=== PATIENT | male | born 1960 | race African-American/Black ===

== ENCOUNTER 2016-08-10 16:05 | Emergency (ER) | payer OTHER ==
[~2016-08-10] VITALS: Ht 172.7 cm; Wt 92.5 kg
[~2016-08-10 16:05] MED LIST: CHOL2000 PO; GABA300C16 PO; NORCO PO; SUCR1TAB56 PO; SULI150T39 PO; TRAM-40 PO
[2016-08-10 16:08] VITALS: Ht 172.7 cm; Wt 92.5 kg
[2016-08-10] MEDS ORDERED: KETOROLAC 30 MG INJ IM STA (17:10)
[2016-08-10] MEDS ORDERED: DIAZEPAM 5 MG TAB PO ONE (17:30)
[2016-08-10] MEDS ORDERED: IBUP400T22 PO (19:12)
--- NOTE | 2016-08-10 19:25 | RADRPT ---
PROCEDURE: XR Hip. CLINICAL INDICATION: Right hip arthroplasty placed 1 year ago. TECHNIQUE: AP and frog lateral views of the right hip were performed. COMPARISON: 11/09/2015. FINDINGS: Total right hip arthroplasty without evident hardware complication, although the distal tip of the a rthroplasty is not seen on these films. There is normal mineralization and alignment. No fracture or osseous lesion is identified. There are normal joints without evidence of arthritis or effusion. The soft tissues are unremarkable. IMPRESSION: No evident hardware complication or acute fracture. RPTAT: [facility] Physician Jose Date Time Electronically viewed and signed by Physician Jose on 08/10/2016 19:25 RS/
--- NOTE | 2016-08-10 19:49 | ERD ---
ER Documentation Chief Complaint Date/Time DATE: 08/10/16 TIME: 19:40 Chief Complaint BACK AND RIGHT HIP PAIN HPI 55 year old male presents to the emergency department history of chronic back and hip pain, status post right and left hip replacement in 2014 and 2015 presenting to the emergency room complaining of acute on chronic lower back pain and hip pain. Patient states that he is following up with his orthopedist however he has not been able to sleep because of the pain and presents today for to get an x-ray. Patient states that he took [employer] about 2 hours ago with no relief. Patient denies any numbness or tingling, saddle anesthesia or bladder or bowel incontinence ROS All systems reviewed and are negative except as per history of present illness. Medications Home Meds Active Scripts Ibuprofen* (Ibuprofen*) 400 Mg Tablet, 400 MG PO Q6H Y for PAIN, #30 TAB Prov:ABDULLAHI SHELTON PA-C 08/10/16 Reported Medications Sucralfate* (Carafate*) 1 Gm Tab, 1 GM PO AC MEALS AND BEDTIME, TAB 11/09/15 [[employer]] No Conflict Check, 5-325 MG PO 10/26/14 Cholecalciferol* (Vitamin D3*) 2,000 Unit Cap, 2000 UNIT PO DAILY, CAP 05/20/14 Sulindac* (Sulindac*) 150 Mg Tablet, 150 MG PO BID, TAB 05/20/14 Tramadol Hcl* (Ultram*) 50 Mg Tablet, 50 MG PO QHS Y for PAIN, TAB 05/20/14 Gabapentin* (Gabapentin*) 300 Mg Capsule, 300 MG PO, CAP 03/02/14 Allergies Allergies: Coded Allergies: No Known Allergy (Unverified , 08/10/16) PMhx/Soc History of Surgery: Yes (R THR 10/2014 , LT THR 2015 , LT ROTATOR CUFF , CHOLECYSTECTOMY ) Anesthesia Reaction: Yes (EYES BURNING AFTER SURGERY, PT STATES THEY WERE NOT PROTECTED AND TAPED ) Hx Neurological Disorder: No Hx Respiratory Disorders: No Hx Cardiac Disorders: Yes (IRRIGULAR HRT RATE, HAD ECHO, SEEN BY CARDIO) Hx Psychiatric Problems: No Hx Miscellaneous Medical Probl: Yes (sarcoidosis) Hx Alcohol Use: Yes (OCCASSIONALLY) Hx Substance Use: No Hx Tobacco Use: No Smoking Status: Never smoker Physical Exam Vitals Vital Signs Date Time Temp Pulse Resp B/P Pulse Ox O2 Delivery O2 Flow Rate FiO2 08/10/16 16:08 98.5 88 18 128/95 98 Physical Exam GENERAL: WD/WN, in no apparent distress, non-toxic appearing HENT: NC/AT EYES: Conjunctiva normal NECK: Supple PULM: Normal labored breathing CV: Good capillary refill GI: Non-distended, no guarding BACK: no deformities noted, normal spinal curvature, TTP on lumbar region BL, non-tender on spine midline, normal anal wink, + right straight leg raise EXT: TTP right hip No clubbing, cyanosis, or edema NEURO: Moves on all fours, sensation intact, normal gait SKIN: intact PSYCH: Normal mood Results 24 hrs Current Medications Medications (Trade) Dose Ordered Sig/Devaughn Route PRN Reason Start Time Stop Time Status Last Admin Dose Admin Ketorolac Tromethamine (Toradol) 30 mg ONCE STAT IM 08/10/16 17:10 08/10/16 17:13 DC 08/10/16 17:18 Diazepam (Valium) 5 mg ONCE ONCE PO 08/10/16 17:30 08/10/16 17:31 DC 08/10/16 17:18 Procedures/MDM 55 year old male presents to the emergency department history of chronic back and hip pain, status post right hip replacement in 2014 and left hip replacement 2016 presenting to the emergency room complaining of acute on chronic lower back pain and hip pain. Patient states that he is following up with his orthopedist however he has not been able to sleep because of the pain and presents today for to get an x-ray, low suspicion for spinal abscess, vertebral fracture, cauda equina syndrome, spinal stenosis due to physical examination. Patient is going to follow-up with orthopedist. An x-ray of the right hip was done and radiologist stated that the x-ray of the right hip showed normal hardware and there was no acute fracture dislocation. In the ED patient was given Toradol and Valium with some improvement. Patient is neurovascularly intact. Prescriptions ibuprofen was given to patient , discussed to return to the ED if not improving as expected or follow-up with a primary care physician. Patient understood and agreed with this plan. Departure Diagnosis: Primary Impression: Hip pain Additional Impression: Back pain Condition: Stable Patient Instructions: How Your Hip Works, Hip Precautions, Back Pain (Acute Or Chronic) Additional Instructions: FOLLOW UP WITH YOUR PRIMARY CARE PHYSICIAN TOMORROW.Return to this facility if you are not improving as expected. Take all medicines as directed. Return to this facility if you are not improving as expected. ABDULLAHI SHELTON PA-C Aug 10, 2016 19:49
[2016-08-10 19:51] VITALS: BP 119/79; PULSE 90; RESP 18; TEMP 98.5
== END 2016-08-10 19:51 | disposition home or self-care (01) ==
LOC: FTE 16:05
DX: M25.551 Pain in right hip (principal); Z96.642 Presence of left artificial hip joint
CPT/HCPCS: 73510; J1885; Z7610; 96372

== ENCOUNTER → 2016-12-12 | Day surgery (SDC) | payer OTHER ==
[~2016-12-12] VITALS: Ht 182.9 cm; Wt 85.0 kg
[2016-12-12] VITALS (17 sets, daily range): BP systolic 119–148; BP diastolic 78–100; PULSE 77–83; RESP 18–22; Ht 182.9 cm; Wt 85.0 kg
[~2016-12-12] MED LIST changes: +BUPIVACAINE 0.5%/EPI (SDV) 10 ML INJ ONE; +CEFAZOLIN 1 GM INJ ONE; +CEFAZOLIN 2 GM/50 ML (PMX) 50 ML IVPB ONE; +CEFAZOLIN 2 GM/50 ML (PMX) 50 ML IVPB SCH; +DEXAMETHASONE 2 MG TAB ONE; +DEXAMETHASONE 2 MG TAB PO ONE; +DEXAMETHASONE 2 MG TAB PO SCH; +DIPHENHYDRAMINE 50 MG INJ IV PRN; +EPINEPHrine 1 MG/ML 30 ML INJ ONE; +FENTAnyl 50 MCG/ML VIAL IV PRN; +FENTAnyl 50 MCG/ML VIAL ONE; +GABAPENTIN 300 MG CAP ONE; +GABAPENTIN 300 MG CAP PO ONE; +GABAPENTIN 300 MG CAP PO SCH; +GLYCOPYRROLATE 1 MG INJ ONE; +IBUP400T22 PO; +LABETALOL HCL 20MG INJ IV PRN; +LIDOCAINE 2% (SDV) 5 ML INJ ONE; +MEPERIDINE 25 MG INJ IV PRN; +MIDAZOLAM 1 MG/ML 2 ML INJ ONE; +NALOXONE (0.4 MG/ML) INJ IV PRN; +NEOSTIGMINE 3 MG/3 ML SYRINGE ONE; +ONDANSETRON 4 MG INJ IV PRN; +ONDANSETRON 4 MG INJ ONE; +PHENYLephrine (100 MCG/ML) 5ML SYG ONE; +PROPOFOL 20 ML ONE; +ROCURONIUM 50 MG INJ ONE; +ROPIVACAINE 0.5 % 30 ML VIAL ONE; +TAMS0.4C2 PO; +TEMA15CA PO; +TRANEXAMIC ACID 1,000 MG in SOD CHLORIDE 0.9% 100 ML IVPB ONE; +TRANEXAMIC ACID 1,000 MG in SOD CHLORIDE 0.9% 100 ML IVPB SCH; +TYL500 PO; +hydrALAzine 20 MG INJ IV PRN; +morphine (1 MG/ML) 10ML SYRINGE IV PRN; +traMADol 50 MG TAB ONE; +traMADol 50 MG TAB PO ONE; +traMADol 50 MG TAB PO SCH
--- NOTE | 2016-12-12 14:16 | HPN ---
Date/Time of Note Date/Time of Note DATE: 12/12/16 TIME: 14:15 Interval H&P Admission Note Pt. seen H&P reviewed: No system changes PEGGY HILL MD Dec 12, 2016 14:16
--- NOTE | 2016-12-12 16:06 | PDOCDIS ---
Discharge Instructions DIAGNOSIS Discharge Diagnosis Acromioclavicular joint arthritis with partial rotator cuff tear left shoulder CONDITION Patient Condition: Good HOME CARE INSTRUCTIONS: Diet Instructions: Regular ACTIVITY: Activity Restrictions: Slowly Increase Activity Keep Limb Elevated Bathing Restrictions: Shower FOLLOW UP/APPOINTMENTS Follow-up Plan 2 weeks SCHOOL/WORK RELEASE May return to School/Work with: With Restrictions School/Work Release Comment: Tabletop usage 5 pounds maximum for 1 month PEGGY HILL MD Dec 12, 2016 16:06
--- NOTE | 2016-12-12 16:11 | OPR ---
Date/Time of Note Date/Time of Note DATE: 12/12/16 TIME: 16:07 Operative Report Procedure Date: Dec 12, 2016 Preoperative Diagnosis Left shoulder impingement with rotator cuff tear Postoperative Diagnosis 1. Left shoulder acromioclavicular joint arthritis ' 2. Left shoulder partial rotator cuff tear Operation Performed 1. Left shoulder distal clavicle resection, arthroscopic 2. Left shoulder extensive arthroscopic debridement Surgeon: PEGGY HILL MD Molding Manager: ALISSA LORENZO MD Anesthesia Type: general Estimated Blood Loss: minimal Transfusion Required: no Specimen: none Grafts/Implants: none Complications: no Pt Condition Post Procedure: stable Disposition: PACU Procedure Description CHIEF INFORMATION SECURITY OFFICER SURGEON: Alissa Lorenzo MD was asked to be present at my request as a result of the complexity associated with this procedure including positioning of the extremity, manipulation of the arthroscope and positioning. In my opinion the assistance offered by a surgical scrub nurses insufficient and Dr. Lorenzo should be compensated for his time PROCEDURE IN DETAIL: Following administration of general endotracheal anesthesia supplemented with a scalene block the patient was placed in the right lateral decubitus position. All prominences were padded and an axillary fold was prepped placed. Sterile prep and drape was then undertaken. Anterior and posterior glenohumeral portal was followed by a lateral portal with an established. Diagnostic arthroscopy revealed some mild chondromalacia of the face of the glenoid this was grade 2 in nature. The anterior third of the humeral head had some grade III chondromalacia which was diffuse. There is some mild synovitis in the biceps with no significant detachment. The labral structures appeared normal. The rotator cuff from the inner surface including the supraspinatus and subscapularis were normal. The arm was then repositioned in the subacromial space entered. Significant bursal reactive tissue was then cleared. The anterior acromion had evidence of a prior resection with no significant impingement. The acromion clavicular joint had severe arthritic changes with an inferior osteophyte. The distal clavicle was skeletonized for a distance of 10 mm and a distal clavicular excision was then completed endoscopically. A good confirmation was obtained of a complete decompression. The rotator cuff was then evaluated. There was partial undersurface tearing. The prior repair appeared relatively intact. There was significant degenerative tissue within the substance of the rotator cuff and this tissue was excised. Following the excision and decompression of this area, the rotator cuff was thought to be relatively intact. No further repair was undertaken. The wounds were irrigated. The portals were then closed using 4-0 Monocryl. Sterile dressing was applied. The patient was then placed supine and transported to recovery room in a stable condition having tolerated procedure well. PGEGY HILL MD Dec 12, 2016 16:11
--- NOTE | 2016-12-13 13:49 | RADRPT ---
Vent Rate: 74 bpm RR Interval: 0 msec AL Interval: 182 msec QRS Duration: 86 msec QT Interval: 410 msec QTC Interval: 455 msec P-R-T [place]: 60 - 67 - -72 degrees Sinus rhythm with frequent premature ventricular complexes T wave abnormality, consider inferolateral ischemia Abnormal ECG Electronically Signed By: Chirag Callahan [id number]
== END | disposition home or self-care (01) ==
LOC: SDS 10:56
PROVIDERS: ATTEND Orthopaedic Surgery
DX: M19.012 Primary osteoarthritis, left shoulder (principal); M75.112 Incomplete rotator cuff tear or rupture of left shoulder, not specified as traumatic; I25.10 Atherosclerotic heart disease of native coronary artery without angina pectoris; E66.01 Morbid (severe) obesity due to excess calories; Z68.25 Body mass index [BMI] 25.0-25.9, adult
CPT/HCPCS: 29823; 29824; 93005; J0690; J2250; J2405; J2710; J2795; J3010; Z7512; Z7610; J0171; J2370